=== PATIENT | male | born 1985 | race Caucasian/White ===

== ENCOUNTER → 2018-04-11 | Outpatient (REF) | payer OTHER | LOC: M SMT 12:48 | PROVIDERS: ATTEND Specialist | DX: Z30.2 Encounter for sterilization (principal) ==

== ENCOUNTER → 2018-06-16 | Outpatient (REF) | payer OTHER ==
[2018-06-16 14:20] LABS: SEMEN APPEARANCE OPAQUE (OPAQUE); SEMEN VISCOSITY LIQUID (LIQUID); SEMEN pH 8.5 (7.0-8.0); WBC CONCENTRATION >1 M/ml (<=1 M/ml)
== END ==
LOC: M SMT 14:15
PROVIDERS: ATTEND Specialist
DX: Z30.09 Encounter for other general counseling and advice on contraception (principal)